=== PATIENT | female | born 1980 | race Two or more races ===

== ENCOUNTER 2024-01-29 17:46 | Emergency (ER) | payer MEDICAID, SELFPAY ==
[2024-01-29 17:59] VITALS: BP 126/82; PULSE 81; RESP 19; TEMP 36.9; O2SAT 99
[2024-01-29 18:00] VITALS: BMI 30.6
--- NOTE | 2024-01-29 18:38 | EDRME_ITS ---
Rapid Medical Screening Exam [facility] Arrival date/time: 01/29/24 17:46 43F with no significant PMH presents to ED with tampon stuck in vagina for 4 days. Patient has some pain but denies fevers/chills. Chief Complaint: General Adult/Misc Complain Time Seen by Provider: 01/29/24 17:55 Vital signs: Vital Signs Temperature 98.5 F 01/29/24 17:59 Pulse Rate 81 01/29/24 17:59 Respiratory Rate 19 01/29/24 17:59 Blood Pressure 126/82 01/29/24 17:59 Pulse Oximetry (%) 99 01/29/24 17:59 Oxygen Delivery Method Room Air 01/29/24 17:59
--- NOTE | 2024-01-29 18:52 | EDNOTE_ITS ---
ED General RME/HPI General Chief complaint: General Adult/Misc Complain Stated complaint: tampon in for 4 days Time Seen by Provider: 01/29/24 17:55 Arrival date/time: 01/29/24 17:46 RME / HPI RME / HPI narrative: 43F with no significant PMH presents to ED with tampon stuck in vagina for 4 days. She is not sure if she remove it or not. Patient denies any abnormal vaginal odor. Abnormal vaginal discharges except for discomfort which according to her could be mental in origin. Patient denies fevers/chills. Related Data Home Medications ?Medication ?Instructions ?Recorded ?Confirmed albuterol sulfate 90 mcg/actuation 2 puff inhalation [id number] PRN 07/01/23 07/01/23 aerosol inhaler Shortness Of Breath Previous Rx's ?Medication ?Instructions ?Recorded hydrocodone 5 mg-acetaminophen 325 1 tab PO Q6H #20 tabs 07/07/23 mg tablet Allergies Allergy/AdvReac Type Severity Reaction Status Date / Time Latex, Natural Rubber Allergy Mild Hives Verified 08/19/23 14:19 Review of Systems Review of Systems Narrative Review of Systems: Review of system reviewed and within normal limits except mentioned in HPI ED Exam Narrative Physical exam: VITAL SIGNS: Reviewed. GENERAL APPEARANCE: Alert and interactive, follows commands, no acute distress, HEAD AND FACE: Non-traumatic. ENT: PERRL, pink conjunctivitis, eyelid no trauma, Mucous membrane moist. NECK: Supple, nontender, no nuchal rigidity. RECTAL: Deferred. GENITAL: Deferred. Pelvic exam was done by me, with a female [employer] FLIGHT CHECK PILOT around all the time, there is no abnormal vaginal discharge, no abnormal odor noted, I did not notice any foreign body in the vagina NEUROLOGICAL: Gross motor function intact sensory function intact, Appropriate for age. MUSCULOSKELETAL: low back nontender, full range of motion. EXTREMITIES: Nontender, full range of motion. SKIN: Color pink, dry, no rash, no lacerations, no abrasions, no contusions. LYMPHATICS: Deferred. Course Quality Measures none Orders Category Date Time Status Pelvic Exam X1 Care 01/29/24 18:33 Active Vital Signs Vital signs: Vital Signs Temperature 98.5 F 01/29/24 17:59 Pulse Rate 81 01/29/24 17:59 Respiratory Rate 19 01/29/24 17:59 Blood Pressure 126/82 01/29/24 17:59 Pulse Oximetry (%) 99 01/29/24 17:59 Oxygen Delivery Method Room Air 01/29/24 17:59 MDM Patient data External records reviewed:: None Clinical information provided by:: none Social determinants that could affect healthcare access:: none Patient has the following chronic illnesses:: None How is presenting disease/condition affected by chronic disease/condition?: no chronic disease Evaluation data The following diagnostics were reviewed and interpreted by me:: other (specify) Lab and/or radiology exams considered but not ordered:: None Interpretation Summary: None Medications Medications considered but not ordered:: None Medication administrations:: None Consultations Consultation(s) initiated? (list below): No Diagnosis Differential Diagnosis ED Complaint MDM: Foreign body vagina, vaginal discomfort Most likely diagnosis given after review of the tests above:: Vaginal discomfort Admission Indicated Admission indicated?: not indicated Explain why admission is indicated or not indicated:: none Admission Request Was there a request for admission?: No Disposition Plan Disposition Plan: Discharge Discharge Attestation Discharge Attestation: The patient was given an opportunity to ask questions and understood the discharge instructions. Discharge instructions specifically effects, indications for sooner follow up or return to the emergency department, and the expected course of current diagnosis. Patient condition: Stable Medical Decision Making Differential Diagnosis Differential Diagnosis: Foreign body vagina, vaginal discomfort Discharge Plan Plan Patient Disposition: HOME (Self Care) Disposition Comment: Stable Prescriptions/Referrals Prescriptions/Med Rec: No Action albuterol sulfate 90 mcg/actuation HFA aerosol inhaler 2 puff INHALATION [id number] PRN (Reason: Shortness Of Breath) Patient Comments: inhale 2 puffs by mouth and INTO THE LUNGS every 6 hours if needed hydrocodone-acetaminophen 5-325 mg tablet 1 tab PO Q6H MDD 4 Qty: 20 0RF Problem List Clinical Impression: Vaginal discomfort Patient/Caregiver Discharge Instructions Discharge Activity: activity as tolerated Education Materials: Discharge Instructions for ... Additional Instructions: Thank you for the opportunity for serving you today. You are stable for discharged . You are advised to: Today I did not notice any tampon inside Return to ED for worsening of symptoms Increase oral fluids Do not use Tampon for the next menstruation. Print Language: Polish Stand Alone Forms: [place] Award Info., Patient Portal Info Letter PA/MARQUIS Supervising Physician JOSE/MARQUIS Supervising Physician: MD Evangelina
== END 2024-01-29 19:00 | disposition home or self-care (01) ==
PROVIDERS: Emergency Provider Emergency Medicine; PCP Family Medicine
DX: T19.2XXA Foreign body in vulva and vagina, initial encounter (principal); W44.8XXA Other foreign body entering into or through a natural orifice, initial encounter; Z91.040 Latex allergy status
CPT/HCPCS: 99283